=== PATIENT | female | born 1990 | race Caucasian/White ===

== ENCOUNTER 2023-12-03 09:55 | Emergency (ER) | payer BC, SELFPAY ==
[2023-12-03 10:02] VITALS: BP 95/40; PULSE 59; RESP 18; TEMP 36.3; O2SAT 100
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
[2023-12-03] MEDS: Ibuprofen 600 MG TAB PO (10:24)
[2023-12-03 11:00] VITALS: BP 116/53; PULSE 62; RESP 18; O2SAT 99
== END 2023-12-03 11:23 | disposition home or self-care (01) ==
LOC: ER 10:44
PROVIDERS: Emergency Provider Student in an Organized Health Care Education/Training Program; PCP Nurse Practitioner Family
DX: M25.562 Pain in left knee (principal); Y93.02 Activity, running; X50.0XXA Overexertion from strenuous movement or load, initial encounter
CPT/HCPCS: 29505; 99283; 73560

== ENCOUNTER → 2023-12-26 00:36 | Outpatient (CLI) | payer BC, SELFPAY ==
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
== END ==
PROVIDERS: PCP Nurse Practitioner Family; Visit Provider Student in an Organized Health Care Education/Training Program
DX: M23.92 Unspecified internal derangement of left knee (principal)
CPT/HCPCS: 73721

== ENCOUNTER 2024-09-19 14:47 | Emergency (ER) | payer BC, SELFPAY ==
[2024-09-19 14:49] VITALS: BP 118/76; PULSE 70; RESP 16; TEMP 37.1; O2SAT 98
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
[2024-09-19 16:39] VITALS: BP 111/73; PULSE 67; RESP 14; TEMP 37.1; O2SAT 100
== END 2024-09-19 17:33 | disposition home or self-care (01) ==
PROVIDERS: Emergency Provider Emergency Medicine; PCP Nurse Practitioner Family
DX: S80.212A Abrasion, left knee, initial encounter (principal); S40.212A Abrasion of left shoulder, initial encounter; S09.8XXA Other specified injuries of head, initial encounter; V18.4XXA Pedal cycle driver injured in noncollision transport accident in traffic accident, initial encounter; Y92.414 Local residential or business street as the place of occurrence of the external cause; Y93.55 Activity, bike riding
CPT/HCPCS: 81025; 99284; 70450